=== PATIENT | male | born 1945 | race Caucasian/White ===

== ENCOUNTER → 2024-07-18 10:52 | Outpatient (REF) | payer MEDICARE, BC, SELFPAY | LOC: HWRAD 10:52 | PROVIDERS: FAMILY PHYSICIAN Internal Medicine | DX: J18.9 Pneumonia, unspecified organism (principal) | CPT/HCPCS: 71046 ==

== ENCOUNTER → 2024-08-05 09:34 | Outpatient (REF) | payer MEDICARE, BC, SELFPAY | LOC: HWRAD 09:34 | PROVIDERS: ATTENDING PHYSICIAN Internal Medicine Rheumatology; FAMILY PHYSICIAN Internal Medicine | DX: M81.0 Age-related osteoporosis without current pathological fracture (principal); Z13.820 Encounter for screening for osteoporosis | CPT/HCPCS: 77080 ==

== ENCOUNTER 2024-09-28 19:23 | Emergency (ER) | payer MEDICARE, BC, SELFPAY ==
[2024-09-28 19:28] VITALS: BP 151/67
[2024-09-28 20:55] VITALS: BP 147/60
--- NOTE | 2024-09-28 22:36 | ED.GENMED ---
History of Present Illness
General
Chief Complaint: Nose Bleed
Source: patient and spouse
Exam Limitations: none
Time Seen by Provider: 09/28/24 22:22
Nursing documentation reviewed up to this point in time: agreed with
History of Present Illness
History of Present Illness:
The patient is an 79-year-old male who presents with intermittent episodes of epistaxis originating from the left nostril for the past two weeks. The patient notes that the bleeding is intermitent from the left nostril and had a previous evaluation
by an Ear, Nose, and Throat (ENT) specialist, Dr. Thompson, earlier this week (Thursday-2 days ago). During this visit, the site was cauterized, particularly anteriorly, but the patient expressed concerns about the effectiveness of the cauterization.
Packing had been placed but patient states the packing fell out yesterday. Despite being advised not to engage in actions such as blowing or picking the nose, the patient returned with ongoing bleeding episodes. The patient describes the bleeding
as moderate, most recently spontaneous bleeding began just prior to dinner. Bleeding has resolved with local pressure.
He has history of A-fib with ablation, history of valve replacement, chronically maintained on Xarelto. Xarelto has been on hold since Thursday, 2 days ago.
He denies dizziness nor lightheadedness. No nausea nor vomiting. No chest pain or cough no shortness of breath.
Past History
Past History
ED Past Medical History: Arrthythmia, HTN and Valvular disease
ED Past Surgical History: Cardiac (A-fib ablation, valve replacement)
Social History
Tobacco: Non-smoker
Alcohol: None
Personal:
Living: with family
Employment: Retired
Family History
Family History: Other (Noncontributory)
Phy Exam
Physical Exam
Physical Exam:
GENERAL: 79-year-old gentleman appears somewhat younger than stated age, bright and alert, pleasant, appears in no acute distress. is accompanying.
EYE: pupils equal and reactive. anicteric
NECK: Supple, nontender, no meningismus, no significant adenopathy.
ENT: posterior pharynx is clear, oral mucosa is moist. TM clear b/l. Left nostril with scant dried/crusted blood. There is evidence of several areas of the left anterior septum, recently cauterized. No active bleeding. There is no evidence of
clots nor blood in the posterior nasal passage.
CARDIAC: Regular rate and rhythm. no murmur.
LUNGS: Clear breath sounds bilaterally, no acute respiratory distress, no wheezes/rales/rhonchi
ABDOMEN: Soft, nondistended, without focal tenderness
NEUROLOGICAL: Alert and oriented x3, no focal neuro deficits. Gait is lackey and steady.
SKIN: Warm and dry, normal color, skin intact. No rash.
MUSCULOSKELETAL: No C/C/E. peripheral pulses are full and equal b/l. No palpable tenderness.
PSYCH: Normal and appropriate interaction.
Course
Vital Signs
Initial and Last Documented VS:
Initial Vital Signs
Temp Pulse Resp BP Pulse Ox
98.2 F 57 18 151/67 96
09/28/24 19:28 09/28/24 19:28 09/28/24 19:28 09/28/24 19:28 09/28/24 19:28
Last Documented Vital Signs
Temp Pulse Resp BP Pulse Ox
98.2 F 57 18 147/60 95
09/28/24 19:28 09/28/24 20:55 09/28/24 22:00 09/28/24 20:55 09/28/24 22:45
Procedures
Nosebleed
Drug treatment: Lidocaine and Epinephrine
Treatment: Silver nitrate cautery
Post treatment bleeding: none- good control
MDM/Problems Addressed
Differential Diagnosis Includes:
Acute Problems:
1. Epistaxis from the left nostril.
No bleeding currently.
Recurrent epistaxis however over the past 2 weeks.
Initial exam reveals recent cautery to several areas of the anterior septum.
I suspect recurrent anterior epistaxis but must consider posterior epistaxis.
Left nasal passage has been anesthetized and decongested with topical lidocaine 4% and epinephrine.
Vital signs within normal limits. Nothing in history nor exam to suggest acute blood loss anemia/symptomatic anemia.
Nothing to suggest infectious process such as sinusitis.
Chronic conditions affecting care: HTN, Arrhythmia and Other (Chronically maintained on Xarelto which increases risk of bleeding. Xarelto currently on hold since Thursday, 2 days ago.)
*Pulse Oximetry
SaO2: 95
Oxygen Mode of Delivery: Room air
Patient hypoxic: no
*Critical Care Note
Total Time (30-74mins, 75-104mins- exclusive of procedures): Not Applicable
Update Note
Update Note:
23:00
3 small friable areas left anterior nostril with scant intermittent bleeding identified.
Successfully cauterized with silver nitrate.
Posterior nasopharynx is clear without clots nor blood.
Posterior pharynx is clear.
Will continue to observe and if no recurrent bleeding will plan for discharge to home with nosebleed instructions discussed in detail.
Recommend he continue to hold Xarelto until October 03.
Patient request referral to ENT closer to home/[place].
ED Attending Note
-
Portions of this chart may have been created with voice recognition software.� Occasional wrong word or��sound alike� substitutions may have occurred due to the inherent limitations of voice recognition software.
Discharge Plan
Departure
Patient Disposition: Home (Routine Discharge)
Date of Disposition: 09/28/24
Time of Disposition: 23:05
Patient with high blood pressure during this ER visit?: No
Condition: Good
Discharge Problem:
Recurrent anterior epistaxis left nostri
Instructions: Nosebleeds (DC)
Referrals:
Anushka Palomo MD [Family Provider, Internal Medicine]
Gilbert Faye MD [Active, Otology] - Follow up in 2-3 days
Activity Restrictions/Additional Instructions:
Over the next 3 days, no blowing, no sniffing, no picking your nose. Try to avoid wiping as well. If needed, you may gently dab.
Continue to hold Xarelto with plan to resume on Thursday, October 03.
Initiate humidifier in your bedroom and for now, turn off the ceiling fan.
After 3 days, if no recurrent nosebleed, I want you to start saline nasal spray such as [place] or [place] nasal spray. 2 sprays each nostril twice daily. I also want you to start Vaseline or bacitracin ointment, thin film just at the entrance of your
nostrils each night.
Interventions
Interventions:
*Risk Screen - Suicide Last Done: 09/28/24 19:28
*General Assessment Last Done: 09/28/24 20:53
*Neglect/Abuse Screening Last Done: 09/28/24 19:28
*ED- Fall Risk Assessment Last Done: 09/28/24 20:53
*ED COVID-19 Vaccine History Last Done: 09/28/24 20:53
ED-EENT Assessment Last Done: 09/28/24 20:53
Discharge Date and Time
Print Language: [place]
[2024-09-28 23:20] VITALS: BP 153/61
== END 2024-09-28 23:43 | disposition home or self-care (01) ==
LOC: EMR 19:23
PROVIDERS: EMERGENCY PHYSICIAN Emergency Medicine; FAMILY PHYSICIAN Internal Medicine
DX: R04.0 Epistaxis (principal); I48.91 Unspecified atrial fibrillation; I10 Essential (primary) hypertension; Z95.2 Presence of prosthetic heart valve; Z79.01 Long term (current) use of anticoagulants
CPT/HCPCS: 30901; 99282

== ENCOUNTER 2024-10-05 02:41 | Emergency (ER) | payer MEDICARE, BC, SELFPAY ==
[2024-10-05 02:47] VITALS: BP 155/70
[2024-10-05 03:01] VITALS: BP 136/57
[2024-10-05 03:06] VITALS: BMI 27.3
--- NOTE | 2024-10-05 03:35 | ED.GENMED ---
History of Present Illness
General
Chief Complaint: Nose Bleed
Source: patient
Exam Limitations: none
Time Seen by Provider: 10/05/24 03:05
Nursing documentation reviewed up to this point in time: agreed with
History of Present Illness
History of Present Illness:
Note:
CHIEF COMPLAINT(S)
Recurrent nosebleeds after previous cauterization.
HISTORY OF PRESENT ILLNESS
The patient is an 79-year-old male with a pmh of htn who presents with recurrent epistaxis, initially treated with nasal cauterization using silver nitrate. The patient reports the onset of his current episode after dinner, approximately at 8 PM. He
denies recent nasal trauma or nasal picking. Despite previous interventions, the nosebleed spontaneously recurred this evening. Prior treatment involved the use of silver nitrate for nasal cauterization prescribed during an ENT visit. The patient
experienced temporary relief after the intervention, but symptoms recurred, leading to the current visit. They reoccurred after he blew his nose.
The patient has a history of atrial fibrillation and has been on warfarin in the past and he still takes it but reports his afib has been stable and has not been in this for many years. He follows with Dr. Beltran. Prior episodes of nasal bleeding
were managed by an ENT with nasal packing and cauterization. The current episode seemed more severe and persistent.
CHRONIC MEDICAL CONDITIONS SIGNIFICANTLY AFFECTING CARE
History of atrial fibrillation.
PHYSICAL EXAM
Nursing notes reviewed and vital signs reviewed.
General: Patient is well appearing and in no acute distress; non-toxic
Skin: Warm and dry, no rashes or lesions
Head: Normocephalic, atraumatic
Eyes: Sclera non-icteric. EOMs intact.
Nose: No septal hematoma. Left sided anterior epistaxis noted. Presence of remnants from previous silver nitrate cauterization. Mild discomfort noted during nasal examination.
Mouth: No blood noted in posterior pharynx.
Cardiac: Regular rate and rhythm, no murmurs
Peripheral Vascular: No lower extremity swelling or edema
Pulm: Normal respiratory effort
Neuro: CN II-XII intact, no focal neurologic deficits.
Psychiatric: Appropriate mood and affect.
PROBLEM LIST
Acute:
- Recurrent epistaxis
Chronic:
- Atrial fibrillation
PLAN
1. Apply epinephrine-impregnated gauze to aid in vasoconstriction and control the bleeding.
2. Consider nasal packing using Merocel
3. Prescribe Afrin nasal spray to assist with vasoconstriction and bleeding control.
4. Monitor the patients response to treatment and reassess if bleeding persists or worsens.
DIFFERENTIAL DIAGNOSIS
The Differential Diagnosis includes, in no particular order and is not limited to:
1. Coagulopathy or bleeding disorder due to medication (e.g., anticoagulants)
2. Nasal trauma or irritation
3. Hypertension-induced epistaxis
4. Nasal septal perforation
5. Hemorrhagic telangiectasia
6. Nasal polyps
7. Sinusitis
8. Nasal tumors or malignancy
9. Rhinitis
10. Allergic reactions
UPDATES
Nose bleeding continues briskly. Will apply pressure with epinephrine soaked gauze. Will do spray of afrin
3:58 AM Afrin sprayed in nostri Merisel packing placed
CHART REVIEW
Reviewed ER/documentation from 09/28/2024 patient seen for nosebleed had silver nitrate cautery done with resolution of bleeding
Reviewed clinical note from September 06, 2024 patient seen for nasal irritation from frequent nosebleeding he was told to avoid nosebleeding and placing objects in the nose and to lubricate the nose with saline and gel
MDM/DISPOSITION
79-year-old male past medical history of hypertension, A-fib on Xarelto, presents with acute nosebleeding. This started after blowing his nose. He has a history of recurrent nosebleeds on the left side. He has no associated dizziness or
lightheadedness. No signs currently of posterior bleed. He follows with [facility]. Patient reports that he has had multiple attempts at cautery recently, and I do see evidence of healing tissue from previous cautery so we will hold off on
silver nitrate at this time. Bleeding controlled with Merisel. Patient observed for 30 minutes after placing of nasal packing with no evidence of rebleeding and symptoms controlled. Discussed follow-up with ENT. Patient stable for discharge.
Past History
Past History
ED Past Medical History: Arrthythmia, HTN and Valvular disease
ED Past Surgical History: Cardiac (A-fib ablation, valve replacement)
Social History
Tobacco: Non-smoker
Alcohol: None
Personal:
Living: with family
Employment: Retired
Family History
Family History: Other (Noncontributory)
Phy Exam
Physical Exam
Physical Exam:
see hpi
Course
Orders/Labs/Results
Orders:
Orders
10/05/24 03:34
Oxymetazoline HCl [Afrin Nasal [place]] See Dose Instructions NASAL NOW STA
Vital Signs
Initial and Last Documented VS:
Initial Vital Signs
Temp Pulse Resp BP Pulse Ox
97.8 F 60 20 155/70 96
10/05/24 02:47 10/05/24 02:47 10/05/24 02:47 10/05/24 02:47 10/05/24 02:47
Last Documented Vital Signs
Temp Pulse Resp BP Pulse Ox
97.8 F 53 18 156/50 97
10/05/24 02:47 10/05/24 05:01 10/05/24 05:01 10/05/24 05:01 10/05/24 05:01
*Pulse Oximetry
SaO2: 96
Oxygen Mode of Delivery: Room air
Patient hypoxic: no
*Critical Care Note
Total Time (30-74mins, 75-104mins- exclusive of procedures): Not Applicable
ED Attending Note
-
Portions of this chart may have been created with voice recognition software.� Occasional wrong word or��sound alike� substitutions may have occurred due to the inherent limitations of voice recognition software.
Discharge Plan
Departure
Patient Disposition: Home (Routine Discharge)
Date of Disposition: 10/05/24
Time of Disposition: 04:41
Patient with high blood pressure during this ER visit?: Yes
Condition: Good
Discharge Problem:
Acute anterior epistaxis
Instructions: Nosebleeds (DC), BLOOD PRESSURE
Referrals:
Ashley Higginbotham DO [Family Provider, Family Practice]
Jamal Porras MD [Active, ENT] - Call in 1-3 days for appt
Activity Restrictions/Additional Instructions:
Please call your ENT doctor to have packing removed in 48 hours and for reassessment.
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 Please skip tomorrow's dose of Xarelto and resume the next day.
PLEASE RETURN TO THE ER SHOULD YOU DEVELOP DIZZINESS, LIGHTHEADEDNESS, CHEST PAIN, SHORTNESS OF BREATH, ABDOMINAL PAIN, VOMITING BLOOD, HEADACHE, OR ANY OTHER SIGNS OR SYMPTOMS WORRISOME TO YOU.
Interventions
Interventions:
*Risk Screen - Suicide Last Done: 10/05/24 02:47
*General Assessment Last Done: 10/05/24 02:47
*Neglect/Abuse Screening Last Done: 10/05/24 02:47
*ED- Fall Risk Assessment Last Done: 10/05/24 02:47
*ED COVID-19 Vaccine History Last Done: 10/05/24 02:47
*Nursing Disposition Last Done: 10/05/24 05:01
ED-EENT Assessment Last Done: 10/05/24 02:57
Discharge Date and Time
Discharge Date/Time: 10/05/24 05:01
Print Language: [place]
[2024-10-05] MEDS: AFRIN NASAL SPRAY 2 SPRAYS NASAL (03:38)
[2024-10-05 05:01] VITALS: BP 156/50
== END 2024-10-05 05:01 | disposition home or self-care (01) ==
LOC: EMR 02:41
PROVIDERS: EMERGENCY PHYSICIAN Student in an Organized Health Care Education/Training Program; FAMILY PHYSICIAN Internal Medicine
DX: R04.0 Epistaxis (principal); I10 Essential (primary) hypertension; I48.91 Unspecified atrial fibrillation; Z79.01 Long term (current) use of anticoagulants; Z95.2 Presence of prosthetic heart valve
CPT/HCPCS: 30901; 99283